=== PATIENT | male | born 1985 | race Caucasian/White ===

== ENCOUNTER 2023-01-18 09:51 | Emergency (ER) | payer MEDICAID ==
[~2023-01-18] VITALS: Ht 180.3 cm; Wt 93.4 kg
[2023-01-18 10:04] VITALS: BP 130/72; PULSE 71; TEMP 98.6; O2SAT 97
[2023-01-18] MEDS ORDERED: ketorolac trometh inj. 60 MG/2 ML VIAL IM ONE (10:30)
[2023-01-18] MEDS ORDERED: NAPR-56 PO (10:33)
[2023-01-18] MEDS ORDERED: DOXY-411 PO (10:33)
[2023-01-18 11:10] VITALS: RESP 18
--- NOTE | 2023-01-18 11:15 | NUR ---
toradol injection given for tooth pain as prescribed. pt educated on medication. discharge instructions reviewed as well as medicatoins to mixing picker tender from pharmacy.
== END 2023-01-18 11:27 | disposition home or self-care (01) ==
LOC: ER 09:52
DX: K04.7 Periapical abscess without sinus (principal)
CPT/HCPCS: 96372; 99283; J1885